=== PATIENT | female | born 1950 | race Two or more races ===

== ENCOUNTER 2017-06-26 07:33 | Day surgery (SDC) | payer MEDICARE, OTHER ==
[~2017-06-26] VITALS: Ht 160 cm; Wt 57.0 kg
[2017-06-26] MEDS ORDERED: COUGH MEDICINE (08:37)
[2017-06-26] MEDS ORDERED: IBUPROPHEN (08:37)
[2017-06-26] MEDS ORDERED: PROPOFOL 40 ML ONE (08:53)
[2017-06-26 09:00] VITALS: BP 137/60; RESP 13
--- NOTE | 2017-06-26 09:53 | OPPN ---
Date/Time of Note Date/Time of Note DATE: 06/26/17 TIME: 09:49 Operative Report Preoperative Diagnosis Iron deficiency anemia Upper abdominal pain Postoperative Diagnosis Ulcerated mass near the hepatic flexure Flat polyp in the sigmoid colon at 10 cm from the anus Internal hemorrhoids Hiatal hernia and gastroesophageal reflux disease Gastritis with erosions Operation/Procedure Performed Esophagogastroduodenoscopy and biopsy Colonoscopy biopsy and polypectomy Tattooing near the mass at the hepatic flexure Provider: PANDA CARNES MD Anesthesia Type: MAC Estimated blood loss: none Transfusion Required: no Specimens Biopsy of the mass near the hepatic flexure Sigmoid polyp Gastric mucosal biopsy Grafts/Implants: none Complications: no PANDA CARNES MD Jun 26, 2017 09:53
[2017-06-26] MEDS ORDERED: PROPOFOL 20 ML ONE (10:58)
--- NOTE | 2017-06-26 11:27 | GILP ---
DATE OF PROCEDURE: 06/26/2017 PROCEDURE PERFORMED: 1. Esophagogastroduodenoscopy and biopsy. 2. Colonoscopy, biopsy and polypectomy and tattooing. INDICATION: Ms Tabitha Cohn is a 66-year-old female patient who was noted to have iron deficiency anemia. She also had upper abdominal pain not responding to therapy. The patient was scheduled for endoscopy and colonoscopy for further evaluation. The procedures and possible complications were well explained to the patient. She understood and consented to the procedures. DESCRIPTION OF PROCEDURE: Under influence of anesthesia, the gastroscope was carefully introduced into the esophagus. Under direct vision, it was advanced to the stomach, into the pylorus, into the duodenal bulb, and descending duodenum. Findings esophagus: The patient had hiatal hernia and gastroesophageal reflux disease. Stomach: She had gastritis. Gastric mucosal biopsies were taken for Helicobacter pylori test. Duodenum was normal. The colonoscope was carefully introduced in the rectum. Under direct vision, it was advanced all the way to the hepatic flexure. The patient was noted to have an ulcerated mass near the hepatic flexure and the scope could not be advanced further. Multiple biopsies were taken for histopathology. The area was tattooed with Ally ink. The patient was also again noted to have a sigmoid polyp at 10 cm from the anus, and it was removed using the snare and electrocautery. She had internal hemorrhoids. She tolerated the procedures very well. There was no complication from the procedures. At the end of procedure, she was awake with stable vital signs and she was discharged home in the care of her family. IMPRESSION: 1. Hiatal hernia. 2. Gastroesophageal reflux disease. 3. Gastritis. 4. Gastric mucosal biopsies were taken for Helicobacter pylori test. 5. Colonoscopy to hepatic flexure. 6. Ulcerated mass near the hepatic flexure and the scope could not be advanced further. 7. Biopsies were taken for histopathology. 8. The area was tattooed with Ally ink. 9. Flat polyp in the sigmoid colon at 10 cm from the anus, and it was removed using the snare and electrocautery. 10. Internal hemorrhoids. PLAN: 1. Omeprazole 40 mg p.o. every morning. 2. Await histopathology reports. 3. Patient needs surgical evaluation, and the patient will be referred to the surgeon. Dictated By: MD OSEI Huynh/heidi/shawn /Document#: [id number]
== END 2017-06-26 14:45 | disposition home or self-care (01) ==
LOC: GIL 07:33
PROVIDERS: ATTEND Internal Medicine Gastroenterology
DX: C18.3 Malignant neoplasm of hepatic flexure (principal); D50.9 Iron deficiency anemia, unspecified; K44.9 Diaphragmatic hernia without obstruction or gangrene; K21.9 Gastro-esophageal reflux disease without esophagitis; K63.5 Polyp of colon; K29.70 Gastritis, unspecified, without bleeding; K64.8 Other hemorrhoids
CPT/HCPCS: 87081; 88305